=== PATIENT | male | born 1990 | race Caucasian/White ===

== ENCOUNTER 2019-02-26 21:05 | Emergency (ER) | payer MEDICAID ==
[~2019-02-26] VITALS: Ht 165.1 cm; Wt 67.5 kg
[2019-02-26 21:07] VITALS: BP 133/77
== END 2019-02-26 21:46 | disposition home or self-care (01) ==
LOC: ED 21:39
DX: S80.811A Abrasion, right lower leg, initial encounter (principal); V89.2XXA Person injured in unspecified motor-vehicle accident, traffic, initial encounter; Y93.89 Activity, other specified; Y92.410 Unspecified street and highway as the place of occurrence of the external cause; Y99.8 Other external cause status
CPT/HCPCS: 99283

== ENCOUNTER 2020-06-14 12:19 | Emergency (ER) | payer MEDICAID ==
[~2020-06-14] VITALS: Ht 167.6 cm; Wt 65.0 kg
[2020-06-14 12:31] VITALS: BP 107/74
--- NOTE | 2020-06-14 13:37 | NUR ---
PATIENT WALKED BACK FROM TRIAGE WITH CHIEF C/O POSSIBLE FOREIGN OBJECT IN LEFT EYE. PATIENT STATES HE WAS WORKING OUTSIDE, AND AROUND 1130, HE THINKS SOMETHIN BLEW INTO HIS EYE. PATIENT TRIED TO FLUSH HIS EYE WITH FIRST AID KIT ON HIS TRUCK, BUT PATIENT REPORTS NO RELIEF. NO SIGNS OF ACUTE DISTRESS. PATIENT HAVING DIFFICULTY OPENING LEFT EYE. ERMD AT BEDSIDE FOR EVALUATION.
== END 2020-06-14 14:09 | disposition home or self-care (01) ==
LOC: ED 12:47
DX: S60.221A Contusion of right hand, initial encounter (principal); F17.210 Nicotine dependence, cigarettes, uncomplicated; W23.0XXA Caught, crushed, jammed, or pinched between moving objects, initial encounter; Y93.89 Activity, other specified; Y92.89 Other specified places as the place of occurrence of the external cause; Y99.8 Other external cause status
CPT/HCPCS: 99281; 99406